=== PATIENT | female | born 1945 | race Caucasian/White ===

== ENCOUNTER → 2018-03-29 | Day surgery (SDC) | payer OTHER ==
[~2018-03-29] VITALS: Ht 162.6 cm; Wt 70.3 kg
--- NOTE | 2018-03-29 14:43 | Operative Report ---
Operative/Inv Procedure Report Surgery Date: 03/29/18 Name of Procedure: TURBT of large tumor Pre-Operative Diagnosis: Bladder cancer Post-Operative Diagnosis: Same Estimated Blood Loss: 50ml to 100ml Surgeon/Dump Grounds Checker: Jacek Gomez MD Anesthesia: general endotracheal tube, laryngeal mask airway Operative/Procedure Note Note: Patient has history of bladder cancer undergoing previous resection and then intravesical treatments. She had recurrence on follow-up cystoscopy. We reviewed alternatives, and she was agreeable undergo repeat TURBT. She was made aware of the complications/implications thereof including but not exclusive of , heart attack, hemorrhage requiring transfusion, damage to adjacent organs including the kidney ureter bladder urethra etc. She is aware of the potential need for further procedures, which could potentially be invasive. She was agreeable undergo the procedure which is as follows. After uneventful induction of general anesthesia patient was placed in lithotomy position and prepped and draped in sterile fashion. At this point a 22 [place] scope was passed per urethra and into the bladder. Thorough inspection of bladder revealed a large tumor on the left dome/left posterior wall. The cystoscope was removed and resectoscope was passed. Under direct visualization she underwent resection of the tumor. The vast majority of the tumor was resected, including some deep biopsies. Because of the position of the tumor resection was incomplete, but all visible tumor was cauterized. There was excellent hemostasis and upon completion of the procedure the patient was awakened and returned to recovery room in good condition.
== END ==
LOC: STS 03-15 07:00
DX: C67.1 Malignant neoplasm of dome of bladder (principal); K21.9 Gastro-esophageal reflux disease without esophagitis; I10 Essential (primary) hypertension; J44.9 Chronic obstructive pulmonary disease, unspecified; F17.200 Nicotine dependence, unspecified, uncomplicated; N32.81 Overactive bladder; Z85.51 Personal history of malignant neoplasm of bladder; Z85.118 Personal history of other malignant neoplasm of bronchus and lung
CPT/HCPCS: J1100; J1580; J2250; J2405